=== PATIENT | male | born 1985 | race Caucasian/White ===

== ENCOUNTER 2024-02-29 13:01 | Emergency (ER) | payer MEDICAID, SELFPAY ==
[2024-02-29 13:07] VITALS: BP 155/101; PULSE 97; RESP 16; TEMP 36.8
[2024-02-29] MEDS: Albuterol/Ipratropium 3 ML UPD VIAL UPD (14:04)
--- NOTE | 2024-02-29 14:09 | ED.GENADUL_ITS ---
Discharge Plan Disposition Patient Disposition: Home Condition: Good Discharge Details Clinical Impression: Cough, Wheezes Primary Care Provider: Unknown,Unknown ED Provider: Rianna Natarajan Home Meds and New Rx's Prescriptions: No Action No Known Home Meds Discharge Instructions Instructions: Wheezing (ED) Additional Instructions: You have been referred to care management for help establishing care with a primary care provider. Use the albuterol inhaler 2 puffs every 4-6 hours as needed for cough/shortness of breath. I encourage you to continue using a humidifier at bedside. Smoking cessation is also a good idea, because smoke is a lung irritant. Return to emergency care if develop new chest pain, difficulty breathing, fevers associated with cough, or if you are very worried and need to be rechecked again immediately. Referrals: Care Management [Provider Group] HPI General Date/Time Provider Initiated Documentation: 02/29/24 13:43 . HPI Narrative: Hola is a 38-year-old male who presents to the emergency department today for evaluation of cough. He reports cough started 3 weeks ago, is worse at night when laying down. He reports he also feels wheezing in his chest associated with cough. 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 He denies associated symptoms such as fever/chills, congestion, postnasal drip, sore throat, chest pain, shortness of breath, nausea/vomiting, change in bowel or bladder function. No significant past medical history. He does smoke cigars daily. He did use an inhaler when he was 9 years old, says he did not have any issues with asthma since then. Related Data Home Medications Medication Instructions Recorded Confirmed Unknown [No Known Home Meds] 02/29/24 02/29/24 Allergies Allergy/AdvReac Type Severity Reaction Status Date / Time Penicillins Allergy Mild Other (See Verified 02/29/24 13:12 Comment) General Stated Complaint: RespSymp TRISTA: 3 Review of Systems Narrative: see HPI Exam Const General: cooperative, healthy appearing, comfortable and no acute distress Resp Effort & Inspection: cough and uses accessory muscles Auscultation: wheezes expiratory wheezes Cardio Rate: regular rate Rhythm: regular rhythm Course Vital Signs Vital signs: Vital Signs Temperature 36.8 C 02/29/24 13:07 Pulse 97 H 02/29/24 13:07 Respiratory Rate 16 02/29/24 13:07 Blood Pressure 155/101 H 02/29/24 13:07 Temperature 36.8 C 02/29/24 13:07 Temperature Source Temporal Artery Scan 02/29/24 13:07 Pulse 97 H 02/29/24 13:07 Respiratory Rate 16 02/29/24 13:07 Respiratory Effort Normal 02/29/24 13:52 Respiratory Depth Normal 02/29/24 13:52 Blood Pressure 155/101 H 02/29/24 13:07 Blood Pressure Position Sitting 02/29/24 13:07 Oxygen Delivery Method Room Air 02/29/24 13:07 Oxygen Flow Rate 0 02/29/24 13:07 Pain Level 10 02/29/24 13:07 Comment mainly pain when trying to sleep, pt can do work during day. 02/29/24 13:07 Medical Decision Making Hola is a 38-year-old male who presents to the emergency department today for evaluation of cough. He reports cough started 3 weeks ago, is worse at night when laying down. He reports he also feels wheezing in his chest associated with cough. 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 He denies associated symptoms such as fever/chills, congestion, postnasal drip, sore throat, chest pain, shortness of breath, nausea/vomiting, change in bowel or bladder function. No significant past medical history. He does smoke cigars daily. He did use an inhaler when he was 9 years old, says he did not have any issues with asthma since then. Physical exam remarkable for frequent coughing fits. Slightly increased work of breathing. Loud expiratory wheezes in all lung fowler. Normal heart sounds. D/dx includes but is not limited to: bronchitis, viral illness, pneumonia, asthma/COPD exacerbation, GERD less likely I independently interpreted the following results: COVID/flu/RSV negative. CXR reassuring, no acute infiltrates noted. This was confirmed by radiologist interpretation. While in the emergency department Hola received DuoNeb treatment with good improvement in symptoms. He reports he is feeling significantly better. Only occasional scattered end expiratory wheezes noted. Coughing fits have resolved. Social determinants of health that may impact pt care include lack of PCP. Will send pt home with albuterol inhaler for wheeze as needed. Care management referral made for help establishing care with a PCP. Reviewed discharge instructions with pt, including red flags indicating need for return to emergency care. Imaging Data Radiologic Study: Radiologist's impression: Exam(s) XR CHEST 2V PA LATERAL EXAM: XR CHEST 2V PA LATERAL CLINICAL HISTORY: cough x 3 weeks w wheeze TECHNIQUE: 2D digital imaging was performed of the chest. Two images were obtained. PA and lateral views were obtained. COMPARISON: No exams were available for comparison FINDINGS: MEDIASTINUM: Normal. HEART: Normal. PULMONARY VASCULATURE: Normal. LUNGS: Clear. PLEURAL SPACE: No pleural effusion or pneumothorax. BONE:Within normal limits for the patient's age. OTHER FINDINGS:There is mild elevation of the right hemidiaphragm. IMPRESSION: No acute pulmonary findings. Quality:SDOH Health Related Social Needs: No Data to Display PFSH All Active Problems (Updated 02/29/24 @ 15:13 by Rianna Chandler) Wheezes (Acute) Cough (Acute) Social History Smoking/Tobacco Use Status: Current-Occasional Tobacco Type: cigars Smoking risk assessment performed?: Yes Alcohol Intake: current Alcohol Intake frequency: holidays/special occasions only Alcohol type: beer Drug use: Never Substance use type: does not use Housing: house Do you feel safe at home: Yes Do you feel safe in your relationship?: Yes
[2024-02-29 14:22] LABS: COVID-19 PCR Negative (Negative); Influenza A PCR Negative (Negative); Influenza B PCR Negative (Negative); RSV PCR Negative (Negative)
[2024-02-29 14:34] LABS: Source Nasopharynx
--- NOTE | 2024-02-29 14:35 | DI.RAD_ITS ---
Exam(s) XR CHEST 2V PA LATERAL EXAM: XR CHEST 2V PA LATERAL CLINICAL HISTORY: cough x 3 weeks w wheeze TECHNIQUE: 2D digital imaging was performed of the chest. Two images were obtained. PA and lateral views were obtained. COMPARISON: No exams were available for comparison FINDINGS: MEDIASTINUM: Normal. HEART: Normal. PULMONARY VASCULATURE: Normal. LUNGS: Clear. PLEURAL SPACE: No pleural effusion or pneumothorax. BONE:Within normal limits for the patient's age. OTHER FINDINGS:There is mild elevation of the right hemidiaphragm. IMPRESSION: No acute pulmonary findings. DATA REPOSITORY: RADIATION DOSE DELIVERED:
[2024-02-29] MEDS: Albuterol HFA 8 GM 60 PUFF INH IH (15:25)
--- NOTE | 2024-02-29 16:16 | NUR.NOTE ---
Referral given to Care Managers for assistance obtaining a Primary Care Provider to Establish Care for follow up to Asthma vs. COPD within 2 weeks.
== END 2024-02-29 15:25 | disposition home or self-care (01) ==
PROVIDERS: Emergency Provider Nurse Practitioner Family
DX: R05.9 Cough, unspecified (principal); R06.2 Wheezing; Z11.52 Encounter for screening for COVID-19; F17.290 Nicotine dependence, other tobacco product, uncomplicated
CPT/HCPCS: 87637; 99284; 71046; J7620

== ENCOUNTER 2025-08-11 18:27 | Emergency (ER) | payer MEDICAID, SELFPAY ==
[2025-08-11] VITALS (7 sets, daily range): BP systolic 134; BP diastolic 75; PULSE 60–101; RESP 11–18; TEMP 36.6; O2SAT 98–100
--- NOTE | 2025-08-11 19:00 | DI.RAD_ITS ---
Exam(s) XR RIBS RT W PA LAT CHEST CLINICAL HISTORY: right rib pain 9-10 lateral, squeezing injury. COMPARISON: CR XR CHEST 2V PA LATERAL from 02/29/2024 TECHNIQUE:: PA and lateral views of the chest and four views of the right ribs were performed. FINDINGS: LUNGS:Small right apical pneumothorax. Minimal blunting at the right costophrenic angle indicating tiny effusion. The lungs are otherwise clear. HEART: Normal size. MEDIASTINUM: Normal. BONES: Fractures of the right 10th through 12th ribs. No spine compression fracture. IMPRESSION: 1. Fractures of the right 10th through 12th ribs. 2. Small right apical pneumothorax. The preliminary [facility] report was reviewed.
--- NOTE | 2025-08-11 19:53 | DI.VRAD_ITS ---
Addendum created by Tonny Sierra MD on 08/11/2025 7:56:40 PM EDT: THIS REPORT CONTAINS FINDINGS THAT MAY BE CRITICAL TO PATIENT CARE. The findings were verbally communicated via telephone conference with Lorraine Salmon at 7:56 PM EDT on 08/11/2025. The findings were acknowledged and understood. Initial report created on 08/11/2025 7:53:25 PM EDT: PROCEDURE INFORMATION: Exam: XR Right Ribs Exam date and time: 08/11/2025 7:18 PM Age: 40 years old Clinical indication: Right-sided; Other: Lower rib pain; Right rib pain 9-10 lateral, squeezing injury TECHNIQUE: Imaging protocol: Radiologic exam of the right ribs. Views: 2 views. COMPARISON: CR XR CHEST 2V PA LATERAL 02/29/2024 2:31 PM FINDINGS: Bones/joints: There are nonsegmental fractures involving the lateral aspect of the right 10th and 11th ribs without significant displacement. No other acute fracture. Bones are otherwise unremarkable. Pleural spaces: Moderate-sized right pneumothorax, approximately 17%. No significant pleural fluid. Soft tissues: Normal. IMPRESSION: 1. Right 10th and 11th rib fractures as described 2. Approximately 17% right pneumothorax PROCEDURE INFORMATION: Exam: XR Chest Exam date and time: 08/11/2025 7:18 PM Age: 40 years old Clinical indication: Right-sided; Other: Lower rib pain; Right rib pain 9-10 lateral, squeezing injury TECHNIQUE: Imaging protocol: Radiologic exam of the chest. Views: 2 views. COMPARISON: CR XR CHEST 2V PA LATERAL 02/29/2024 2:31 PM FINDINGS: Lungs: Unremarkable. No consolidation. Pleural spaces: Moderate-sized right pneumothorax, approximately 17%. No significant pleural fluid. Heart/Mediastinum: Unremarkable. No cardiomegaly. Bones/joints: There are nonsegmental fractures involving the lateral aspect of the right 10th and 11th ribs without significant displacement. No other acute fracture. Bones are otherwise unremarkable IMPRESSION: 1. Right 10th and 11th rib fractures as described 2. Approximately 17% right pneumothorax Dictated and Authenticated by: Tonny Sierra MD. Orderin Viky Peters MD
[2025-08-11] MEDS: Lidocaine 5% Patch 1 PATCH TP (20:12)
[2025-08-11] MEDS: MORPHine IR 15 MG TAB PO (20:35)
--- NOTE | 2025-08-11 21:55 | DI.RAD_ITS ---
Exam(s) XR CHEST 2V PA LATERAL EXAM: XR CHEST 2V PA LATERAL CLINICAL HISTORY: pneumothorax rt , eval for size comparison TECHNIQUE: 2D digital imaging was performed. Two views. COMPARISON: CR,XR XR RIBS RT W PA LAT CHEST from 08/11/2025 FINDINGS: HEART: Normal size. Aorta: Not dilated. PULMONARY VASCULATURE: Normal. MEDIASTINUM: Unremarkable. LUNGS: Suboptimally inflated. Mildly increased densities above the right diaphragm. PLEURAL SPACE: Tiny right pleural effusion. Small right apical pneumothorax. Slight improvement compared with the prior exam. BONE:Right 10th and 11th rib fractures. SOFT TISSUES: Unremarkable. IMPRESSION: Mild interval improvement in size of small right apical pneumothorax. The preliminary [facility] report was reviewed. DATA REPOSITORY: RADIATION DOSE DELIVERED:
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
--- NOTE | 2025-08-12 00:03 | DI.VRAD_ITS ---
PROCEDURE INFORMATION: Exam: XR Chest Exam date and time: 08/11/2025 11:43 PM Age: 40 years old Clinical indication: Pain; Right-sided; Pneumothorax RT , eval for size comparison TECHNIQUE: Imaging protocol: Radiologic exam of the chest. Views: 2 views. COMPARISON: No relevant prior studies available. FINDINGS: Lungs: Lungs appear clear. No acute infiltrate. Pleural spaces: Right pneumothorax appears slightly decreased in size compared to the prior study, measuring approximately 15% on the current study. No significant pleural fluid. Heart/Mediastinum: Unremarkable. No cardiomegaly. Bones/joints: Right 10th and 11th rib fractures again noted. IMPRESSION: Slight apparent decreased size of right pneumothorax, measuring 15% on the current study. Right 10th and 11th rib fractures again noted Dictated and Authenticated by: Tonny Sierra MD. Orderin Viky Peters MD
[2025-08-12] MEDS: oxyCODONE 5 MG TAB 10 MG PO (00:09)
== END 2025-08-12 00:16 | disposition home or self-care (01) ==
PROVIDERS: Emergency Provider Emergency Medicine
DX: S22.41XA Multiple fractures of ribs, right side, initial encounter for closed fracture (principal); J93.83 Other pneumothorax; X50.9XXA Other and unspecified overexertion or strenuous movements or postures, initial encounter; Y93.89 Activity, other specified; Y92.89 Other specified places as the place of occurrence of the external cause; F17.290 Nicotine dependence, other tobacco product, uncomplicated
CPT/HCPCS: 99283; 71046; 71100